=== PATIENT | male | born 1980 | race Caucasian/White ===

== ENCOUNTER 2019-03-03 17:06 | Emergency (ER) | payer BC ==
[~2019-03-03] VITALS: Ht 182.9 cm; Wt 80.0 kg
[~2019-03-03 17:06] MED LIST: ANUCORT-HC25 MG RE
[2019-03-03] MEDS ORDERED: ANUCORT-HC25 MG RE (17:57)
[2019-03-03] MEDS ORDERED: PREP H HC1 % EX (17:57)
[2019-03-03 18:05] VITALS: BP 138/77
== END 2019-03-03 18:10 | disposition home or self-care (01) | DRG 395 ==
LOC: ED 17:06
PROC: 069Y0ZZ Drainage of Lower Vein, Open Approach (ICD-10-PCS; principal; 2019-03-03)
DX: K64.5 Perianal venous thrombosis (principal); F17.200 Nicotine dependence, unspecified, uncomplicated